=== PATIENT | female | born 1955 | race Caucasian/White ===

== ENCOUNTER 2025-01-05 22:30 | Observation (INO) | payer MEDICARE, BC, SELFPAY ==
[2025-01-05] VITALS (8 sets, daily range): BP systolic 93–158; BP diastolic 34–68; PULSE 62–86; BMI 52.1
[2025-01-05 16:34] LABS: Hematocrit 35.9 % (37.0-47.0); Hemoglobin 12.2 g/dL (12.0-16.0); Mean Corp Hgb Conc. 34.0 g/dL (33.0-37.0); Mean Corpuscular Volume 78.7 fL (81.0-99.0); Nucleated Red Blood Cells % 0 %; Platelet Count 125 10^3/uL (130-400); Red Cell Dist. Width 14.4 % (11.5-14.5)
[2025-01-05 16:53] LABS: ALT (SGPT) 21 U/L (0-35); AST (SGOT) 27 U/L (14-36); Albumin 4.4 g/dl (3.5-5.0); Alkaline Phosphatase 167 U/L (38-126); Blood Urea Nitrogen 22 mg/dl (7-17); Calcium 9.4 mg/dl (8.4-10.2); Carbon Dioxide 25 mmol/L (22-30); Chloride 105 mmol/L (98-107); Glucose 97 mg/dl (70-99); Potassium 3.5 mmol/L (3.5-5.1); Sodium 138 mmol/L (135-145); Total Protein 7.1 g/dl (6.3-8.2); eGFR > 60.00
[2025-01-05 17:08] LABS: Troponin I < 0.012 ng/ml
--- NOTE | 2025-01-05 19:40 | ED.GENMED ---
History of Present Illness
General
Chief Complaint: Fainting/Passed Out
Source: patient
Exam Limitations: none
Time Seen by Provider: 01/05/25 18:03
Nursing documentation reviewed up to this point in time: agreed with
History of Present Illness
History of Present Illness:
see MDM
Phy Exam
Physical Exam
Physical Exam:
GENERAL: Alert , in no apparent distress
EYE: pupils equal and reactive
NECK: Supple
ENT: o/p clr, mmm.
CARDIAC: Regular rate and rhythm .
LUNGS: Clear breath sounds bilaterally, no acute respiratory distress, no wheezes/rales/rhonchi
ABDOMEN: Soft, without focal tenderness, no r/g, no cvat, normal bowel sounds
NEUROLOGICAL: Alert and oriented, no focal neuro deficits, 5 out of 5 strength upper and lower extremity, sensation intact, no weakness observed
SKIN: Warm and dry, skin intact.
MUSCULOSKELETAL: bl knees no swelling, able to flex
b/l ankles mildly swollen, ful ROM
L toe with 3rd and 4th toes hammer toes, bruised;
PSYCH: Normal and appropriate interaction.
Course
Orders/Labs/Results
Orders:
Orders
01/05/25 Dinner
Cholesterol Lowering
At Your Request: Full Participation
Cholesterol Lowering: Sodium, 2 Gram
01/05/25 16:13
Electrocardiogram (*1) Urgent
Reason for Study: Syncope
EKG- Treatment ONCE
01/05/25 16:23
CMP [Comprehensive Metabolic Panel] Urgent
Complete Blood Count/With Diff Urgent
Troponin I Urgent
01/05/25 18:45
CT Cervical Spine W/o Iv Contr Urgent
Comment:
Reason For Exam: arm/leg weaknesss, spinal stenosis, fall
CT Head W/o Iv Contrast Urgent
Comment:
Reason For Exam: hit head, gets weak and falls
Ankle, Right 3 view CR [CR Ankle - Right Min 3 Views *] Urgent
Comment:
Reason For Exam: ankle sprain
Ankle, left 3 view CR [CR Ankle - Left Min 3 Views ] Urgent
Comment:
Reason For Exam: ankle sprain
CR Foot - Left Min 3 Views Urgent
Comment:
Reason For Exam: left 3rd 4th toe pain
01/05/25 18:46
Knee, Left 1 or 2 Views [CR Knee - Left 1 Or 2 Views] Urgent
Comment:
Reason For Exam: fall onto knees
Knee, Right 1 or 2 Views [CR Knee - Right 1 Or 2 Views] Urgent
Comment:
Reason For Exam: fall onto inkees
01/05/25 21:48
Admit/Transfer Patient As Directed
Co-Sign Provider:
Level of Care: Observation services
Assign to:: Telemetry
Physician / Group: kurt
Diagnosis: presyncope
Reason for Telemetry: Syncope
Date to Stop Telemetry: 01/07/25
Time to Stop Telemetry: 11:00
Orthostatic Vital Signs As Directed
Orthostatic VS Frequency: Now
PRN Pain Medication Management As Directed
May give lesser potent ordered pain med per pt: Yes
preference::
Protocol:: Medication orders for pain may be administered in a
manner that supports deferring to patient preference
when the pt is:
- Requesting an ordered lesser potent pain medication.
Least to most potent pain medications are defined
as: acetaminophen < NSAID < tramadol < opioids
(morphine, oxycodone, hydromorphone).
- Requesting a lesser dose of the same medication IF
ORDERED.
- Requesting a less intrusive route of administration
if both routes are prescribed by the provider (PO <
IV).
01/05/25 21:49
Code Status As Directed
Resuscitation Status: Full Code
01/05/25 22:48
Acetaminophen [Tylenol] 650 mg PO Q4HPRN PRN
Bisacodyl [Dulcolax] 10 mg RECTAL [id number] PRN
Docusate W/Senna [Senokot-S] 1 tablet PO BIDPRN PRN
Ketorolac [Toradol] 15 mg IV Q6HPRN PRN
Ondansetron Injectable [Zofran] 4 mg IV Q6HPRN PRN
Polyethylene Glycol Powder [Miralax] 17 grams PO DAILYPRN PRN
01/05/25 22:48
Echo 2D MMode Color/Doppler Routine
Reason for Study: presyncope
CARDIOLOGY CONSULT Routine
Consulting Provider: Roel Nash
Was physician already notified: No
Reason for consult: fainting/syncope
Consult Notification Routine
Specialty to Notify: Cardiology
Urinalysis Routine
Activity As Directed
Activity Level: With Assistance
Orthostatic Vital Signs As Directed
Orthostatic VS Frequency: Daily
Vital Signs As Directed
Frequency: Per unit guidelines
DX Deep Vein Thrombosis Video Routine
01/06/25 06:00
Basic Metabolic Panel IN AM
Cardiovascular Evaluation IN AM
Complete Blood Count/No Diff IN AM
Cortisol, Random IN AM
Ferritin IN AM
Iron IN AM
Magnesium IN AM
NT-proBNP IN AM
TSH IN AM
Total Iron Binding IN AM
01/06/25 08:00
Atorvastatin [Lipitor] 10 mg PO DAILY
Hydrochlorothiazide [Oretic] 25 mg PO DAILY
Losartan [Cozaar] 100 mg PO DAILY
Sertraline HCl [Zoloft] 200 mg PO DAILY
01/06/25 18:00
Enoxaparin Sodium [Lovenox] 40 mg SC QPM
01/07/25 11:00
DC Protocol for Telemetry ONCE
Abnormal Lab Results
01/05/25
16:23
Hct 35.9 L %
(37.0-47.0)
MCV 78.7 L fL
(81.0-99.0)
MCH 26.8 L pg
(27.0-31.0)
Plt Count 125 L 10^3/uL
(130-400)
BUN 22 H mg/dl
(7-17)
Alkaline Phosphatase 167 H U/L
(38-126)
01/05/25 16:23
01/05/25 16:23
Vital Signs
Initial and Last Documented VS:
Initial Vital Signs
Temp Pulse Resp BP Pulse Ox
36.7 C 78 16 158/68 97
01/05/25 16:06 01/05/25 16:06 01/05/25 16:06 01/05/25 16:06 01/05/25 16:06
Last Documented Vital Signs
Temp Pulse Resp BP Pulse Ox
36.8 C 71 16 105/55 97
01/05/25 23:00 01/05/25 23:00 01/05/25 23:00 01/05/25 23:00 01/05/25 23:00
MDM/Problems Addressed
Differential Diagnosis Includes:
see MDM
MDM/Problems Addressed:
Note:
CHIEF COMPLAINT(S)
Passed out, associated with feelings of weakness and inability to stand.
HISTORY OF PRESENT ILLNESS
The patient is a 60 y/o F with h/o obesity, htn, hld who reports episode of lightheadedness/weakness with standing. Recently, she has been experiencing episodes when standing up where she feels lightheaded, followed by weakness in her arms and
legs. During one such episode yesterday, she felt suddenly lightheaded and then went down to the ground, landing on her knees, hitting her head . She states, 'I was holding on to the countertop and the next thing I know, Im saying to myself, Im
falling,' indicating a potential loss of consciousness or transient dizziness. The patient reports feelings of shaking and weakness particularly in her legs, adding, 'I couldnt get my leg.' This episode occurred yesterday, and she felt persistent
soreness in her knees and ankles afterward.
The patient disclosed a history of replaced knees and reported chronic back issues and 'radiculopathy,' with 'neuropathy in my thighs.' She has not seen a specialist recently for these conditions. The incident yesterday is noted as her first
occurrence of the rubbery feeling in her legs. She fell again outside on a separate occasion, describing difficulty supporting her weight, which has been ongoing for about two weeks.
The patient mentions managed blood pressure and diabetes, alongside medication for cholesterol. A recent episode involved her falling in the shower, contributing to the soreness, particularly in her knees due to replaced joints
ADDITIONAL HISTORY OBTAINED FROM SOURCE OTHER THAN PATIENT
The patients son and grandson assisted her after her fall, helping her regain her footing.
SOCIAL DETERMINANTS AFFECTING HEALTH
The patient recently moved from [place] and is not yet established with a medical provider in the current area.
MEDICATIONS
Blood pressure medication, cholesterol medication, diabetes medication.
PHYSICAL EXAM
Nursing notes reviewed and vital signs reviewed.
- Strength: Patient was able to lift, push, and follow directions during the examination, although initially describing severe weakness during the event.
- Neurological: No noted numbness or sensory loss; strength was regained after the initial event.
- Musculoskeletal: Reporting soreness in the knees and ankles.
- No new signs of concussion or significant neurological deficits during the physical examination.
PLAN
- A head and neck scan will be conducted to rule out any potential bone injuries or major issues.
- X-rays of the knees, ankles, and feet to rule out bony injuries.
- Hospital admission overnight for further observation to ensure safety and proper follow-up without astorga.
- MRI recommended on an outpatient basis if necessary.
- Continued assessment of neurology and cardiology-related causes.
DIFFERENTIAL DIAGNOSIS
The Differential Diagnosis includes, in no particular order and is not limited to:
1. Orthostatic hypotension
2. Neuropathy
3. Postural orthostatic tachycardia syndrome (POTS)
4. Transient ischemic attack
5. Cardiac arrhythmia (e.g., atrial fibrillation)
6. Vasovagal syncope
7. Concussion
8. Multiple sclerosis
9. Peripheral nerve disorder
10. Seizure disorder
01/05/25 - 21:03
Patient evaluated for episodes of lightheadedness and near syncope. Imaging has ruled out acute fractures, stroke, or significant trauma, but slight narrowing between C5 and C6 noted. her orthostatics are neg
but it is concerning that she suddeny feels this lightheadedness followed by generalized weakness.
d/w ed attending dr landry.
Options include observation with heart monitor for dysrhythmias, and possible cardiology follow-up with extended monitoring if necessary. Patient expressed willingness to stay for monitoring despite being currently asymptomatic, highlighting
importance of addressing potential risks. No immediate cardiovascular threat identified, but further outpatient workup is considered if discharged. Patient remains comfortable with plan, awaiting possible accommodation in private room given hospital
constraints.
01/06/2025 0037 AM
Patient has a toe fracture on the left fourth toe. I spoke with a staff member on 2 S. who will notify the nurse to missy tape the 4th and 5th toes together.
tjhis is a weight bearing injury
*Pulse Oximetry
SaO2: 99
Oxygen Mode of Delivery: Room air
Patient hypoxic: no
*Critical Care Note
Total Time (30-74mins, 75-104mins- exclusive of procedures): Not Applicable
ED Attending Note
-
Portions of this chart may have been created with voice recognition software.� Occasional wrong word or��sound alike� substitutions may have occurred due to the inherent limitations of voice recognition software.
Discharge Plan
Departure
Patient Disposition: Admit
Date of Disposition: 01/05/25
Time of Disposition: 21:03
Admit to: Telemetry
Presentation/result/management discussed w/ accepting MD/DO: Hospitalist
Condition: Fair
Discharge Problem:
Syncope and collapse, Fracture of toe
Interventions
Interventions:
*Risk Screen - Suicide Last Done: 01/05/25 22:55
*General Assessment Last Done: 01/05/25 18:26
*Neglect/Abuse Screening Last Done: 01/05/25 16:06
*ED COVID-19 Vaccine History Last Done: 01/05/25 22:55
*Nursing Disposition Last Done: 01/05/25 22:46
ED- Cardiac Assessment Last Done: 01/05/25 18:26
ED- Neurological Assessment Last Done: 01/05/25 18:26
Discharge Date and Time
Discharge Date/Time: 01/05/25 22:47
--- NOTE | 2025-01-05 21:36 | HPS.HSE ---
Family Physician
-
Family Physician: NOT KNOW UNKNOWN - PT DOES
Chief Complaint
-
Syncopal episode
History of Present Illness
This is a 69-year-old female with past medical history significant for hypertension, chronic neuropathy, hyperlipidemia who presents to the emergency department with 2 weeks of recurrent episodes of weakness and fainting/collapse.
Patient reports history of vertigo which is usually associated with positional changes and lasts seconds. However over the last 2 weeks she reports that she has had orthostatic lightheadedness and collapse. She states that she is able to get up
without having any symptoms. And then after she starts walking she gets lightheaded and develops paresthesias in her upper and lower extremities. She developed some weakness. She says arms and legs feel rubbery and she feels that he is about to
collapse. She did collapse 2 days ago. She has no loss of consciousness with these episodes. She reports that these are not associated with palpitations, nausea vomiting chest pain. There are no other associated with any vision changes. She
denies any palpitations otherwise. Patient denies any other focal logical deficits. She does note intermittent paresthesias of her upper and lower extremities bilaterally. She states she has had cervical disc disease in the past. Patient denies
any recent diarrhea. She denies any urinary symptoms. She denies any melena or hematochezia. She denies any recent changes in medications. She does not measure her blood pressure at home as she thinks the call for is not accurate. She denies
history of CAD arrhythmias heart failure or valvular disease.
On arrival in the emergency department she was afebrile, initial blood pressure was 120 systolic, repeat blood pressures was in the 90s systolic with a MAP of 64. Heart rate was 66 she was satting 99% on room air. ECG shows a normal sinus rhythm
at a rate of 72 with low voltages but otherwise nonacute. Troponin was 0.012. She had a CT of the head and C-spine which shows no acute findings. Skeletal survey shows no trauma.
CBC shows a hemoglobin of 12.2 platelet count of 125 and a white count of 6.4. Electrolytes were unremarkable. BUN/creatinine was normal.
Medical History
Past Medical History
Past Medical History: Reports HTN, Hypercholesterolemia, Psychiatric (Depression) and Other (Morbid obesity, peripheral neuropathy)
Past Surgical History: Reports Appendectomy and Gynocological (Left salpingo-oophorectomy)
Social History
Tobacco: Non-smoker
Alcohol: Occasional
Drug: None
Personal:
Living: With Family
Family History
Family History: Not pertinent
Allergies / Home Medications
Allergies reflects when Allergies were last updated in [facility].
Home Medications with original date entered in [facility]
Allergy/Medication List:
Allergies
Allergy/AdvReac Type Severity Reaction Status Date / Time
No Known Allergies Allergy Unverified 01/05/25 16:06
Hydrochlorothiazide 25 mg tablet, 25 mg p.o. daily
Pregabalin 200 mg ER capsule, 200 mg p.o. daily
Losartan 100 mg tablet, 100 mg p.o. daily
Zoloft 100 mg capsule, 200 mg p.o. daily
Livalo 2 mg tablets, 2 mg p.o. daily
Review of Systems
-
Constitutional: Reports No Symptoms
EENT: Reports No Symptoms
Respiratory: Reports No Symptoms
Cardiac: Reports No Symptoms
Abdomen/GI: Reports No Symptoms
: Reports No Symptoms
Musculoskeletal: Reports No Symptoms
Skin: Reports No Symptoms
Neurological: Reports Weakness and Numbness
Endocrine: Reports No Symptoms
Hematologic/Lymphatic: Reports No Symptoms
Psych: Reports No Symptoms
Physical Exam
Vital Signs
Vital Signs
Temp Pulse Resp BP Pulse Ox
98.1 F 63 10 93/52 96
01/05/25 16:06 01/05/25 21:00 01/05/25 21:00 01/05/25 20:24 01/05/25 21:30
Physical Exam
General: Well Developed, Well Nourished, No Apparent Distress and Obese
HEENT: NormoCephalic, Anicteric, Moist mucous membranes and Atraumatic
Respiratory: Clear
Cardiac: S1/S2 and Regular Rhythm; No Murmur, Rub, Gallop, Peripheral Edema or JVD
GI: Soft, Non Tender, Non Distended and Normal Bowel Sounds
Rectal: Deferred by Provider
Genito-urinary: Deferred by me
Musculoskeletal: No Clubbing, No Cyanosis and No Edema
Skin: Warm
Neuro: AO x 3 and Nonfocal/grossly intact
Hematologic/Lymphatic: No Lymphadenopathy
Psych: Calm
Laboratory Results
-
01/05/25 16:23
01/05/25 16:23
Laboratory Results
Total Bilirubin 0.9 mg/dl (0.2-1.3) 01/05/25 16:23
AST 27 U/L (14-36) 01/05/25 16:23
ALT 21 U/L (0-35) 01/05/25 16:23
Alkaline Phosphatase 167 U/L (38-126) H 01/05/25 16:23
Troponin I < 0.012 ng/ml 01/05/25 16:23
Data Reviewed
-
Diagnostic Radiology: Report Reviewed by me
CT Scan: Report Reviewed by me
Medical Tests (Nuc Med, Echo, EKG etc): Image Personally Visualized and interpreted
Lab Data: Labs Reviewed by me
Old Records: Reviewed
Impression/Plan
-
IMPRESSION:
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 She denies
any actual loss of consciousness. She denies any other cardiac symptoms. She reports history of vertigo but this events are different from her usual vertigo. Initial workup in the emergency department shows ECG with low voltages but otherwise
unremarkable, troponin was negative. Electrolytes were normal. BUN/creatinine were normal. CBC was unremarkable.
PLAN:
Recurrent collapse / presyncope - orthostatic likely, vs cardiogenic or neurogenic.
- admit to telemetry observation
- check orthostatic vs,
- check tsh, cortisol levels
- u/a
- telemetry, echo for ef, valve dz evalaution and pericardial evaluation
- cardiology consultation
HTN - BP 90s systolic here
- hold parameters on losartan 100
- continue hctz for now
DVT PPX - lovenox sq
Code status - Full Code
--- NOTE | 2025-01-05 23:00 | PTCARENOTE ---
Pt arrived to [address] [place] [address] @ 2300 via stretcher from ED. Pt stood and pivoted to bed w/o complication. AAOx3. VSS. Placed on monitoring analyst, NSR. Admission assessment complete. Skin completely intact besides a scab on L hip. Pt with no complaints of
lightheadedness/dizziness or pain at current time. Call wharton within reach, oriented to room, bed locked and in lowest position. Reviewed plan of care with pt and educated pt on use of call wharton before getting OOB. Pt agreeable. Care ongoing.
--- NOTE | 2025-01-06 00:40 | PTCARENOTE ---
Per JUDY Tolentino taped left 4th and 5th toe with paper tape.
[2025-01-06 03:00] VITALS: BP 116/45
[2025-01-06 07:08] LABS: Urine Character Clear (Clear)
[2025-01-06 07:30] VITALS: BP 114/58; BP 123/72; BP 129/83; PULSE 60; PULSE 70; PULSE 82
[2025-01-06 07:37] LABS: Hematocrit 36.5 % (37.0-47.0); Hemoglobin 12.0 g/dL (12.0-16.0); Mean Corp Hgb Conc. 32.9 g/dL (33.0-37.0); Mean Corpuscular Volume 80.6 fL (81.0-99.0); Platelet Count 108 10^3/uL (130-400); Red Cell Dist. Width 14.1 % (11.5-14.5)
[2025-01-06 08:00] LABS: Blood Urea Nitrogen 21 mg/dl (7-17); Calcium 9.4 mg/dl (8.4-10.2); Carbon Dioxide 28 mmol/L (22-30); Chloride 105 mmol/L (98-107); Estimated Creatinine Clearance 116 ml/min; Glucose 122 mg/dl (70-99); HDL Cholesterol 52 mg/dl; Iron 60 ug/dl (37-170); LDL Cholesterol, Calculated 91 mg/dl; Magnesium 1.9 mg/dl (1.6-2.3); Potassium 3.4 mmol/L (3.5-5.1); Sodium 139 mmol/L (135-145); Very Low Density Lipoprotein 30 mg/dl (0-30); eGFR > 60.00
[2025-01-06 08:09] LABS: Total Iron Binding Capacity 317 ug/dl (265-497)
[2025-01-06 08:32] LABS: Cortisol, Random 17.5 ug/dl; TSH 3.64 uIU/ml (0.47-4.68)
[2025-01-06 08:36] LABS: Ferritin 117.0 ng/ml (11.1-264.0)
[2025-01-06] MEDS: LIPITOR 10 MG PO (08:46)
[2025-01-06] MEDS: ZOLOFT 200 MG PO (08:46)
[2025-01-06] MEDS: KCL 40 MEQ PO (08:46)
[2025-01-06 08:52] LABS: GGTP 24 U/L (12-43)
--- NOTE | 2025-01-06 09:01 | W.PN.HOSP.TC ---
Addendum entered and electronically signed by Gualberto Mishra MD 01/06/25 12:34:
#L nondisplaced fracture of the fourth metatarsal
Surgical boot
repeat XR foot in 2 weeks, outpatient ortho recommended
Original Note:
Today's Communication/Plan
-
See PN
Assessment / Plan
Assessment / Plan
69yo F with PMHx of PUD, BPPV, HTN, neuropathy, obesity, DJD s/p TKA, HLD, recently moved to area came with 2 weeks of intermittent feeling of extreme lightness in both UE and LE when walking, that was causing her to have few falls w/o LOC. No
signficant new back pain noted, no focal neurologcal deficit upon bedside eval. Found relative systolic hypotension and mild hypokalemia, that probably causd the symptoms. Possible offender HCTZ
A/P:
#Pre-syncope
most likely 2/2 hypotension and hypokalemia 2/2 HCTZ
no chest pain, palpitation, however generalized weakness as a prodrome
No focal neuro deficit, Head CT unremarkable, no indication for further neurological workup
TSH, cortisol pending
Telemetry
Echo
EKG with NSR
cardio consult
#Hypokalemia
2/2 HCTZ
stop
daily BP monitoring at home and work with PCP for further mgmt
#HLD
#Essential HTN
stop HCTZ
#PUD
#HUMBERTO
Iron supplements
patient due for EGD and colonoscopy - emphasized imprortance of scheduling with GI of her choice
#Anxiety
cont home meds
#Morbid obesity
BMI 52.1
Sleep study as outpatient
check HgbA1c
advise to decrease calorie intake
DVT ppx lovenox
Full code
I have spent at least 58min reviewing chart, test results, communication with consultants and providing direct patient care
Anticipated Discharge: Within 24 hours
Subjective/Interval History
-
Date of Service: January 06, 2025
Objective Data
-
Labs:
Laboratory Results
01/06/25
07:22
WBC 5.4
Hgb 12.0
Hct 36.5 L
Plt Count 108 L
Sodium 139
Potassium 3.4 L
Chloride 105
Carbon Dioxide 28
BUN 21 H
Creatinine 0.7
Glucose 122 H
Calcium 9.4
Vital Signs:
Vital Signs
Temp Pulse Resp BP Pulse Ox
98.0 F 60 17 114/58 97
01/06/25 07:30 01/06/25 07:30 01/06/25 07:30 01/06/25 07:30 01/06/25 07:30
I&O
01/05/25 01/06/25 01/07/25
06:59 06:59 06:59
Intake Total 480 / 480
Balance 480 / 480
Review of Systems
-
History Source: Patient
All other systems: Reviewed and negative
Physical Exam
-
General: No Apparent Distress
HEENT: Normocephalic
Respiratory: Clear to Auscultation
Cardiac: Regular Rhythm; Negative Murmur
GI: Soft, Nontender and Nondistended
Genito-urinary: No Costovertebral Tender
Musculoskeletal: No Clubbing, No Cyanosis and No Edema
Neuro: Awake, Alert, Oriented, AO x 3, No Motor Deficits and Nonfocal/Grossly Intact
Psych: Calm
--- NOTE | 2025-01-06 10:04 | CM ---
CM following re: discharge planning.
Reviewed pt's chart, met with pt.
Pt is a 69 year old female admitted with OBS status and primary dx of Syncope. PMH includes: hypertension, chronic neuropathy, hyperlipidemia. OBS status explained to the pt, WEBBER letter signed, placed on chart, pt has a copy.
Pt reports she just moved to [place] from [facility], resigns with in a condo, no steps. Pt reports she has supportive son. Pt described herself as independent in all areas [employer], uses a cane as needed. No VN or SNF history.
PT and OT will evaluate the [pt to determine a level of care at discharge.
PCP: Pt stated she just got a new PCP in [place] and does not remember the name.
Ph[facility]acy: [facility]
D/C plan: home with anticipated no needs vs VN/outpatient therapy.
CM will follow with discharge plan updates as hospitalization progresses
--- NOTE | 2025-01-06 10:19 | CON.CAR ---
Consultation
Consultation Request
Date/Time Consultation Requested: January 05, 2025 10:48 PM
Date/Time Consultation Performed: January 06, 2025 9 AM
Requesting Provider: Hospitalist
Performing Provider: Tao Horner
Reason for Consultation: Presyncope
Medical History
-
Chief Complaint: Lightheaded dizziness falls
History of Present Illness:
69-year-old female who has a past medical history of hypertension, BPPV, neuropathy, obesity, osteoarthritis, hyperlipidemia who is here for evaluation of presyncopal symptoms. She tells me that over the last several weeks she has gotten more
lightheaded and dizzy than normal. She denies any GI illness or any changes in diet. She has vertigo but this typically lasts only seconds. Yesterday, when she felt wobbly and fell over this did not feel like her vertigo symptoms. She felt very
lightheaded and had paresthesias in her upper and lower extremities. This led to weakness and then her ultimately falling over. She denies any loss of consciousness. She denies any symptoms of chest pain, shortness of breath, palpitations or
feeling of her heart racing.
In the emergency room troponin was negative and ECG showed normal sinus rhythm and she was admitted for further evaluation.
Past Medical History
Past Medical History: Other (hypertension, BPPV, neuropathy, obesity, osteoarthritis, hyperlipidemia)
Past Surgical History: Other (b/l knee replacements)
Social History
Tobacco: Non-Smoker
Alcohol: Occasional
Drug: None
Personal:
Living: With Family
Employment: Retired
Family History
Family History: Reviewed & Not Pertinent
Allergies / Home Medications
Allergy/AdvReac Type Severity Reaction Status Date / Time
No Known Allergies Allergy Unverified 01/05/25 16:06
�Medication �Instructions �Recorded �Confirmed �Type
hydrochlorothiazide 25 mg tablet 25 mg PO DAILY Fluid 01/05/25 01/05/25 History
Retention/Swelling
losartan 100 mg tablet 100 mg PO DAILY Blood Pressure 01/05/25 01/05/25 History
pitavastatin calcium 2 mg tablet 2 mg PO DAILY High Cholesterol 01/05/25 01/05/25 History
(Livalo)
sertraline 100 mg tablet (Zoloft) 200 mg PO DAILY Mental 01/05/25 01/05/25 History
Health/Anxiety
Review of Systems
-
All other systems: Negative unless noted
Physical Exam
Vital Signs
Temp Pulse Resp BP Pulse Ox
98.0 F 60 17 114/58 97
01/06/25 07:30 01/06/25 07:30 01/06/25 07:30 01/06/25 07:30 01/06/25 07:30
Lab Results
01/06/25 07:22
01/06/25 07:22
Troponin I < 0.012 ng/ml 01/05/25 16:23
Mop-Z-Bvexcurjcxc Pept 103 pg/ml 01/06/25 07:22
Physical Exam
General: Well Developed, Well Nourished and Comfortable
HEENT: Normocephalic
Respiratory: Clear and Non Labored Respirations
Cardiac: Other (distant heart sounds)
GI: Soft
Musculoskeletal: No Cyanosis and No Edema
Skin: Warm and Dry
Neuro: AO x 3
Psych: Calm
Impression / Plan
-
A/P: 69-year-old female who has a past medical history of hypertension, BPPV, neuropathy, obesity, osteoarthritis, hyperlipidemia who is here for evaluation of presyncopal symptoms. She had no significant symptoms concerning for ischemia and/or
heart failure. Additionally, she had no palpitations concerning for possible arrhythmia. I wonder at this point if she is having low blood pressure due to her antihypertensive medications and this is causing some of her symptoms.
Presyncope
- Hold antihypertensive medicine
- Echocardiogram
- Hopeful improvement in blood pressure with holding her antihypertensive meds will improve symptoms
- If echo okay and okay for discharge
Hypertension
- Hold antihypertension medicine
- Monitor blood pressure
- Her blood pressure since arrival has been on the lower side with systolics around 100-110
-Obtain echocardiogram
- She has follow-up with her primary care doctor in approximately 2 weeks
Dyslipidemia
- Continue statin
Data Reviewed
-
EKG: Tracing Personally Visualized and interpreted (sr)
Labs: Labs Reviewed by me
[2025-01-06 10:53] LABS: Glycohemoglobin (HgbA1c) 5.7 % (4.0-5.6)
[2025-01-06 11:18] VITALS: BP 132/63
[2025-01-06 13:18] VITALS: BP 134/110; BP 159/88; PULSE 85
--- NOTE | 2025-01-06 13:28 | PTOTSP ---
Patient demonstrates safe and independent mobility, no recurrence of dizziness symptoms, no skilled physical therapy needs at this time.
[2025-01-06] MEDS: FERRLECIT 110 MG IV (13:38)
[2025-01-06 15:48] VITALS: BP 140/74
[2025-01-06] MEDS: MAALOX 30 ML PO (16:04)
--- NOTE | 2025-01-06 17:08 | W.DCSUMMARY ---
Discharge Summary
Discharge Data
Date of Admission: 01/05/25
Date of Discharge: 01/06/25
-
Pending Results: No
Hospital Course
69yo F with PMHx of PUD, BPPV, HTN, neuropathy, obesity, DJD s/p TKA, HLD, recently moved to area came with 2 weeks of intermittent feeling of extreme lightness in both UE and LE when walking, that was causing her to have few falls w/o LOC. No
signficant new back pain noted, no focal neurological deficit upon bedside eval. Found relative systolic hypotension and mild hypokalemia, that probably causd the symptoms. Possible offender HCTZ. L non-displaced Fx of 4th metatarsal: outpatient
ortho and walking boot advised. Losartan decreased to 50mg and patient advised to measure BP art home every AM - use OTC meter. Patient did well and independently with PT. Advised to schedule colonoscopy and EGD as soon as possible. Medically stable
for d/c home
I have spent at least 58min reviewing chart, test results, communication with consultants and providing direct patient care
Patient was managed for:
#L nondisplaced fracture of the fourth metatarsal
#Pre-syncope
#Hypokalemia
#HLD
#Essential HTN
#PUD
#HUMBERTO
#Anxiety
#Morbid obesity
#PReDM
Discharge Plan
-
Patient Disposition: Home (Routine Discharge)
Discharge Diagnosis/Procedures: pre-syncope
Diet: Diabetic, Carb Controlled
Activity: As tolerated
Activity Restrictions/Additional Instructions:
Wear walking boot on L foot
Referrals:
Emile Villatoro MD [Active, Podiatry] - in two to three weeks
Referral Note: for repeated l foot XR
UNKNOWN - PT DOES,NOT KNOW [Family Provider]
Prescriptions:
New
ferrous sulfate 325 mg (65 mg iron) tablet
325 mg PO DAILY Qty: 30 0RF
sennosides-docusate sodium 8.6-50 mg Tablet
1 tab PO BIDPRN PRN (Reason: constipation) Qty: 60 0RF
losartan 50 mg tablet
50 mg PO DAILY Qty: 30 0RF
Continued
sertraline [Zoloft] 100 mg tablet
200 mg PO DAILY
pitavastatin calcium [Livalo] 2 mg tablet
2 mg PO DAILY
Discontinued
hydrochlorothiazide 25 mg tablet
25 mg PO DAILY
losartan 100 mg tablet
100 mg PO DAILY
Discharge Orders:
Discharge Patient (As Directed); Ordered 01/06/25
Ordered By: Gualberto Mishra
Discharge Date and Time
Print Language: TRISTANIAN
== END 2025-01-06 17:40 | disposition home or self-care (01) ==
LOC: 2 SOUTH 22:30
PROVIDERS: ADMITTING PHYSICIAN Internal Medicine; ATTENDING PHYSICIAN Internal Medicine; EMERGENCY PHYSICIAN Emergency Medicine; OTHER PHYSICIAN Internal Medicine Cardiovascular Disease
DX: S92.345A Nondisplaced fracture of fourth metatarsal bone, left foot, initial encounter for closed fracture (principal); E87.6 Hypokalemia; I95.9 Hypotension, unspecified; R55 Syncope and collapse; M48.00 Spinal stenosis, site unspecified; R53.1 Weakness; M79.675 Pain in left toe(s); E66.01 Morbid (severe) obesity due to excess calories; E78.00 Pure hypercholesterolemia, unspecified; I10 Essential (primary) hypertension; R42 Dizziness and giddiness; M47.812 Spondylosis without myelopathy or radiculopathy, cervical region; T50.2X5A Adverse effect of carbonic-anhydrase inhibitors, benzothiadiazides and other diuretics, initial encounter; M77.31 Calcaneal spur, right foot; F41.9 Anxiety disorder, unspecified; Z68.43 Body mass index [BMI] 50.0-59.9, adult; W18.39XA Other fall on same level, initial encounter; Y93.E1 Activity, personal bathing and showering; Y92.002 Bathroom of unspecified non-institutional (private) residence as the place of occurrence of the external cause; E11.40 Type 2 diabetes mellitus with diabetic neuropathy, unspecified; R29.6 Repeated falls; F32.A Depression, unspecified; Z90.721 Acquired absence of ovaries, unilateral; Z90.49 Acquired absence of other specified parts of digestive tract; Z96.653 Presence of artificial knee joint, bilateral; Z87.11 Personal history of peptic ulcer disease; Z79.899 Other long term (current) drug therapy
CPT/HCPCS: 70450; 72125; 73560; 73610; 73630; 80048; 80053; 80061; 81003; 82533; 82728; 82977; 83036; 83540; 83550; 83735; 83880; 84443; 84484; 85025; 85027; 93005; 93306; 97162; 99285; G0378; J2916